=== PATIENT | male | born 1940 | race Caucasian/White ===

== ENCOUNTER 2018-12-10 19:25 | Inpatient (IN) | payer MEDICARE, OTHER ==
--- NOTE | 2018-12-10 20:14 | ED Physician Chart ---
ED Chief Complaint/HPI - Patient Information Date Seen:: 12/10/18 Time Seen:: 20:09 Chief Complaint:: agitation History of Present Illness:: 78 yr old male with hx of depression here from [facility] in [place] here for agitation ED Review of Systems - Review of Systems General/Constitutional: No fever Skin: No skin lesions Head: No headache ENT: No earache Neck: No neck pain Cardio Vascular: Palpitations Pulmonary: No SOB GI: No nausea G/U: No dysuria Musculoskeletal: No bone or joint pain Endocrine: No polyuria Psychiatric: Depression Hematopoietic: No bruising Allergic/Immuno: No urticaria Neurological: No syncope ED Past Medical History - Past Medical History Obtainable: No Past Medical History: Other (metabolic encephalopathy parkinsons aphasia generalized weakness) ED Physical Exam - Physical Examination General/Constitutional: Well-developed, well-nourished Head: Atraumatic Eyes: Lids, conjuctiva normal Skin: Nl inspection ENMT: External ears, nose nl Neck: Full ROM w/o pain Respiratory: Nl effort/Exclusion Cardio Vascular: RRR GI: No tenderness/rebounding/guarding Extremities: No tenderness or effusion ED Assessment - Assessment General Assessment: agitaion ED Septic Shock - . Is Septic Shock (SBP<90, OR Lactate>4 mmol\L) present?: No ED Reassessment (Disposition) - Reassessment Reassessment:: dementia parkinsons aphasia depression - Diagnosis Diagnosis:: agitation depression - Patient Disposition Discharge/Transfer:: Acute Care w/in this hosp Admitted to:: Med/Surg Condition at Disposition:: Stable
[2018-12-10 20:28] LABS: % BASOPHILS 0.2 % (0.0-2.0); % EOSINOPHILS 5.4 % (0.0-5.0); % LYMPHOCYTES 23.2 % (20.0-50.0); % MONOCYTES 6.3 % (2.0-10.0); % NEUTROPHILS 64.9 % (40.0-80.0); EOSINOPHILE ABSOLUTE 0.3 Th/cmm (0.1-0.4); HEMATOCRIT 44.4 % (41.0-60); HEMOGLOBIN 14.5 gm/dL (12-16); LYMPHOCYTE ABSOLUTE 1.2 Th/cmm (1.5-3.0); MEAN CELL VOLUME 91.6 fl (80-99); MEAN CORPUSCULAR HEMOGLOBIN 29.9 pg (27.0-31.0); MEAN CORPUSCULAR HGB CONC 32.7 pg (28.0-36.0); MEAN PLATELET VOLUME 7.2 fl; MONOCYTE ABSOLUTE 0.3 Th/cmm (0.3-1.0); NEUTROPHILE ABSOLUTE 3.5 Th/cmm (1.8-8.0); PLATELET COUNT 233 Th/cmm (150-400); RED BLOOD COUNT 4.84 Mil/cmm (3.80-5.80); RED CELL DISTRIBUTION WIDTH 13.8 % (11.5-20.0); WHITE BLOOD COUNT 5.3 Th/cmm (4.8-10.8)
[2018-12-10 20:43] LABS: ALB/GLOB RATIO 1.2 (1.0-1.8); ALBUMIN 3.8 gm/dL (4.2-5.5); ALKALINE PHOSPHATASE 45 U/L (34-104); ANION GAP 12.1 (7.0-16.0); BILIRUBIN,TOTAL 0.5 mg/dL (0.3-1.0); BUN - UREA NITROGEN 20 mg/dL (7-25); CALCIUM SERUM 9.2 mg/dL (8.6-10.3); CARBON DIOXIDE 25.3 mEq/L (21.0-31.0); CHLORIDE 104 mEq/L (98-107); GLUCOSE 117 mg/dL (70-105); POTASSIUM SERUM 3.4 mEq/L (3.5-5.1); SGOT 15 U/L (13-39); SGPT/ALT 13 U/L (7-52); SODIUM SERUM 138 mEq/L (136-145)
[2018-12-10] MEDS ORDERED: Potassium Chloride 20 mEq ER Tab PO ONE ×2 (21:58→22:03)
[2018-12-10 23:12] VITALS: BP 132/56
[2018-12-10] MEDS ORDERED: Magnesium Hydroxide (MOM) 30 mL UDC PO PRN (23:18)
[2018-12-10] MEDS ORDERED: Hydrocodone/APAP 5mg/325mg Tab PO PRN (23:18)
[2018-12-11 08:10] LABS: CHOLESTEROL 165 mg/dL (<200); HDL -HIGH DENSITY LIPOPROTEIN 30 mg/dL (23-92); TRIGLYCERIDES 90 mg/dL (<150)
[2018-12-11] MEDS: Multivitamin Tab PO SCH (08:54)
--- NOTE | 2018-12-12 00:02 | History & Physical ---
ADMIT DATE: 12/11/2018 REASON FOR ADMISSION: Psychiatric disorder. HISTORY OF PRESENT ILLNESS: This is a 78-year-old male, who was admitted to [facility] for underlying psychiatric illness by Dr. Fabian. Dr. Fabian requested medical H and P on this patient. The patient denies current medical complaints or concerns. PAST MEDICAL HISTORY: Chronic low back pain, Parkinson's disease. PAST SURGICAL HISTORY: No significant past surgical history. FAMILY HISTORY: Unknown. SOCIAL HISTORY: Lives at nursing facility. No report of alcohol, tobacco, or street drug use. MEDICATIONS: Per medication reconciliation reviewed. ALLERGIES: No known drug allergies. REVIEW OF SYSTEMS: As per HPI, 12-point system is negative. PHYSICAL EXAMINATION: VITAL SIGNS: Temperature 98.0, pulse 68, respirations 20, blood pressure 102/53, and 94% on room air. Pain 0/10. HEENT: Unremarkable. HEART: S1, S2 normal. LUNGS: Clear to auscultation. ABDOMEN: Soft, nontender NEUROLOGIC: Grossly nonfocal. AVAILABLE LABORATORY DATA: Reviewed. ASSESSMENT: 1. Hyperlipidemia. 2. Hypokalemia. 3. Insomnia. 4. Psych disorder. 5. Chronic low back pain. PLAN: The patient will be continued on [place] as needed. Continue psychotropic medications. Fall precaution will be given. Home medications reviewed. Psych management per psychiatrist. Low fat diet. The patient medically stable to participate activity in [facility]. Thank you, Dr. Fabian, for allowing me to participate in the care of this patient. [facility]# [id number]
--- NOTE | 2018-12-12 00:50 | Psychiatric Evaluation ---
DATE OF SERVICE: 12/10/2018 IDENTIFYING DATA: The patient is a 78-year-old male, resident of [facility]. Information obtained directly interviewing the patient as well as reviewing the admission papers. JUSTIFICATION FOR HOSPITALIZATION: The patient is admitted for depression. CHIEF COMPLAINT: "I am not feeling well." HISTORY OF PRESENT ILLNESS: This is the first psychiatric hospitalization to [facility] for this patient who is reported to have been feeling depressed and getting easily isolated and withdrawn and has been having crying spells. Chart is reviewed. The patient is interviewed. During the interview, the patient has been very isolative and has not been verbalizing much. The patient's sleep is noted to be poor. Appetite is also noted to be poor. PAST PSYCHIATRIC HISTORY: Details are not known. MEDICAL AND PHYSICAL EXAMINATION: Requested to be done by Dr. Nash. SUBSTANCE ABUSE HISTORY: None. PHYSICAL OR SEXUAL ABUSE HISTORY: None. LEGAL PROBLEMS: None at this time. INVENTORY OF ASSETS: The patient is motivated. MENTAL STATUS EXAMINATION: The patient is a 78-year-old, looking his stated age, superficially cooperative. Eye contact is poor. Mood is noted to be depressed. Affect is constricted. The patient is isolative and withdrawn. Insight and judgment at this time are noted to be still impaired. Impulse control seems to be limited. The patient is not presenting with any threats to harm self or others at this time. The patient has short-term memory deficits, but long-term memory seems to be fair at this time. The patient is alert and aware that he is in the hospital. DIAGNOSTIC IMPRESSION: AXIS I: Major depressive disorder, recurrent and moderate. IB. Dementia and behavioral change, secondary trait. AXIS II: None. IMMEDIATE TREATMENT PLAN: The patient is going to be observed on inpatient unit, provided with supportive psychotherapy. The patient is going to be closely monitored. Encouraged to verbalize the concerns. Once stabilized, the patient is going to be discharged to [facility] to be followed up on an outpatient basis. JOB# [id number]
[2018-12-12] MEDS: Escitalopram Oxalate 5 mg Tab PO SCH (08:50)
[2018-12-12] MEDS: Multivitamin Tab PO SCH (08:50)
--- NOTE | 2018-12-13 03:06 | Progress Notes ---
DATE: 12/12/2018 SUBJECTIVE: Staff was spoken to. The patient is interviewed. Mood is noted to be depressed. Affect is constricted. The patient is isolative and withdrawn. Insight and judgment are noted to be still impaired. Impulse control is noted to be limited. ASSESSMENT: The patient is still depressed. PLAN: To continue the patient with Lexapro and follow. The patient has both short-term as well as long-term memory deficits. [facility]# [id number]
[2018-12-13] MEDS: Escitalopram Oxalate 5 mg Tab PO SCH (08:33)
[2018-12-13] MEDS: Multivitamin Tab PO SCH (08:33)
--- NOTE | 2018-12-13 23:32 | Progress Notes ---
DATE: 12/13/2018 SUBJECTIVE: Staff was spoken to. The patient is interviewed. Mood is noted to be depressed. Affect is constricted. The patient is isolative and withdrawn. The patient has been not verbalizing much of anything and the patient tends to be confined to his bed most of the time. No side effects to the medications are noted. The patient is currently on 5 mg of the Lexapro and is able to tolerate the medication. ASSESSMENT: The patient is still depressed. PLAN: To continue the patient with the supportive therapy. I encouraged the patient to verbalize the concerns rather than to act out. JOB# [id number]
[2018-12-14] MEDS: Multivitamin Tab PO SCH (08:49)
[2018-12-14] MEDS: Escitalopram Oxalate 5 mg Tab PO SCH (09:00)
--- NOTE | 2018-12-14 09:02 | Consultation ---
DATE OF CONSULTATION: 12/12/2018 REFERRING PHYSICIAN: Edilma Lara MD TYPE OF CONSULTATION: Psychology. HISTORY OF PRESENT ILLNESS: The patient is a 78-year-old male. The patient is a resident of [facility]. The following is by record review and by the patient's self-report. The patient is being admitted for depression. Upon interview, the patient states that he is not feeling well and that he is very depressed. The staff at the patient's facility states that the patient had become isolated and very withdrawn with intermittent crying spells. The patient was not specific as to the reasons for his depression. The patient seems somewhat selectively mute when answering the clinical interview questions. The patient denied any suicidal ideation, plan, or intention at the time of this clinical interview. PAST MEDICAL HISTORY: Please see history and physical by Dr. Nash. PAST PSYCHIATRIC HISTORY: Records are unavailable. Details are unknown. SUBSTANCE ABUSE HISTORY: The patient denied any history of alcohol, tobacco, or illicit drug use. PSYCHOSOCIAL HISTORY: The patient did not answer questions about occupational or educational history. The patient states that he is [employer] and that he was , but is legally . The patient states that his daughter, Priscilla is involved in his care. The patient denied any history of physical or sexual abuse or any current legal problems. The patient does wish to return to his placement. MENTAL STATUS EXAMINATION: The patient appears to be his stated age. The patient's attitude is superficially cooperative. Eye contact is poor. Speech is soft and slow. Mood is depressed. Affect is mood congruent. Thought process shows to be depressogenic with some confusion. The patient denied any suicidal ideation, plan, or intention or any wish to . The patient denies any auditory or visual hallucinations or any delusions. The patient's behavior has been isolative and withdrawn. The patient's impulse control is adequate. Concentration is [id number]. The patient's memory seems to be moderately impaired for short-term dimension and long-term memory seems to be fair. Sensorium is alert and oriented to self and place only. The patient did not participate in the interpretation of proverbs. Insight is poor and judgment is compromised. DIAGNOSTIC IMPRESSION: AXIS I: 1. Major depressive disorder, recurrent, moderate. 2. Provisional diagnosis of dementia with behavioral disturbance. AXIS II: Deferred. AXIS III: Per Dr. Nash. TREATMENT PLAN: The patient has been seen by Dr. Lara for psychiatric evaluation and for the management of the patient's psychotropic medications. We will provide supportive psychotherapy to include cognitive behavioral therapy to reduce the patient's depression. We will provide coping strategies for phase of life issues as well as adjustment to the patient's placement in a long-term care environment. We will provide motivational enhancement for the patient to become compliant and stay compliant with all aspects of his care and treatment. We will encourage the patient to verbally contract for safety. We will continue the present treatment and follow up in 2 days. Thank you, Dr. Lara for this consult and the opportunity to participate in this patient's care. JOB# [id number] MTDD
--- NOTE | 2018-12-15 01:37 | Progress Notes ---
DATE: 12/14/2018 PSYCHIATRIC PROGRESS NOTE SUBJECTIVE: Staff was spoken to. The patient is interviewed. Mood is noted to be depressed. Affect is constricted. The patient is isolative and withdrawn. Insight and judgment are noted to be still impaired. Impulse control is noted to be limited. The patient is isolative and not able to participate in any of the groups. ASSESSMENT: The patient is still depressed. PLAN: To continue the patient on current medications. I encouraged the patient to verbalize the concerns rather than to act out. The patient is on 5 mg of escitalopram and has been able to tolerate. Plan to continue the medication and follow up. JOB# [id number]
[2018-12-15] MEDS: Multivitamin Tab PO SCH (08:45)
[2018-12-15] MEDS: Escitalopram Oxalate 5 mg Tab PO SCH (08:45)
--- NOTE | 2018-12-15 23:53 | Progress Notes ---
DATE: 12/15/2018 PSYCHOLOGY PROGRESS NOTE SUBJECTIVE: The patient is seen and is interviewed. Case is discussed with staff. The patient presents as depressed as well as withdrawn. The patient does not understand what is happening to him and why he is hospitalized. The patient admits that he is very depressed and lacks any motivation to participate in the milieu therapy. Staff reports that the patient is isolative and withdrawn. OBJECTIVE: Mood is depressed. Affect is constricted. Thought process shows to be depressogenic. The patient denies any hallucinations or delusions. The patient denies any suicidal ideation, plan, or intention or any wish to . The patient is withdrawn and isolating. ASSESSMENT: The patient remains depressed. We provided coping strategies for phase of life issues. We provided cognitive behavioral therapy to reduce the patient's depression. The patient is taking his p.o. medications. We will continue to monitor the patient on the unit and provide supportive psychotherapy. We will provide remotivation for the patient to become compliant and stay compliant with all aspects of his care and treatment and to participate in the therapies being offered. We will follow up in 2 days to continue the present treatment if the patient remains admitted on the unit. JOB# [id number] ZINA
--- NOTE | 2018-12-16 01:36 | Progress Notes ---
DATE: 12/15/2018 SUBJECTIVE: Staff was spoken to. The patient is interviewed. Mood is noted to be still depressed. Affect is constricted. The patient is isolative and withdrawn. Insight and judgment are noted to be still impaired. Impulse control is noted to be limited. The patient has been having difficult time to cope with the stress. The patient is currently on 5 mg of the Lexapro and has been able to tolerate the medication. In view of the depression, I have decided to increase the dose on the Lexapro to 10 mg and followup. JOB# [id number]
[2018-12-16] MEDS: Multivitamin Tab PO SCH (08:38)
[2018-12-16] MEDS: Escitalopram Oxalate 5 mg Tab PO SCH (08:38)
--- NOTE | 2018-12-17 03:19 | Progress Notes ---
DATE: 12/16/2018 SUBJECTIVE: Staff was spoken to. The patient is interviewed. Mood is noted to be depressed. Affect is constricted. The patient is isolated and withdrawn. The patient is not willing to participate in any of the groups. Coping skills are noted to be very poor. The patient has been able to tolerate the Lexapro that was increased to 10 mg and the patient is going to be followed up with the supportive therapy. No side effects to the medications are noted so far. ASSESSMENT: The patient is still depressed. PLAN: To continue the patient with the supportive therapy and followup. JOB# [id number]
[2018-12-17] MEDS: Escitalopram Oxalate 5 mg Tab PO SCH (08:54)
[2018-12-17] MEDS: Multivitamin Tab PO SCH (08:55)
--- NOTE | 2018-12-17 22:14 | General Progress Note ---
Objective - Results Result Diagrams: 12/10/18 20:25 12/10/18 20:25 Recent Labs: Laboratory Last Values WBC 5.3 Th/cmm (4.8-10.8) 12/10/18 20: RBC 4.84 Mil/cmm (3.80-5.80) 12/10/18 20:25 Hgb 14.5 gm/dL (12-16) 12/10/18 20:25 Hct 44.4 % (41.0-60) 12/10/18 20:25 MCV 91.6 fl (80-99) 12/10/18 20:25 MCH 29.9 pg (27.0-31.0) 12/10/18 20: MCHC Differential 32.7 pg (28.0-36.0) 12/10/18 20:25 RDW 13.8 % (11.5-20.0) 12/10/18 20:25 Plt Count 233 Th/cmm (150-400) 12/10/18 20:25 MPV 7.2 fl 12/10/18 20:25 Neutrophils % 64.9 % (40.0-80.0) 12/10/18 20:25 Lymphocytes % 23.2 % (20.0-50.0) 12/10/18 20:25 Monocytes % 6.3 % (2.0-10.0) 12/10/18 20:25 Eosinophils % 5.4 % (0.0-5.0) H 12/10/18 20:25 Basophils % 0.2 % (0.0-2.0) 12/10/18 20:25 Sodium 138 mEq/L (136-145) 12/10/18 20:25 Potassium 3.4 mEq/L (3.5-5.1) L 12/10/18 20:25 Chloride 104 mEq/L (98-107) 12/10/18 20:25 Carbon Dioxide 25.3 mEq/L (21.0-31.0) 12/10/18 20:25 Anion Gap 12.1 (7.0-16.0) 12/10/18 20:25 BUN 20 mg/dL (7-25) 12/10/18 20:25 Creatinine 1.0 mg/dL (0.7-1.3) 12/10/18 20:25 Est GFR ( Amer) TNP 12/10/18 20:25 Est GFR (Non-Af Amer) TNP 12/10/18 20:25 BUN/Creatinine Ratio 20.0 12/10/18 20:25 Glucose 117 mg/dL (70-105) H 12/10/18 20:25 POC Glucose 89 MG/DL (70 - 105) 12/11/18 00:12 Calcium 9.2 mg/dL (8.6-10.3) 12/10/18 20:25 Total Bilirubin 0.5 mg/dL (0.3-1.0) 12/10/18 20:25 AST 15 U/L (13-39) 12/10/18 20:25 ALT 13 U/L (7-52) 12/10/18 20:25 Alkaline Phosphatase 45 U/L (34-104) 12/10/18 20:25 Total Protein 7.0 gm/dL (6.0-8.3) 12/10/18 20:25 Albumin 3.8 gm/dL (4.2-5.5) L 12/10/18 20:25 Globulin 3.2 gm/dL 12/10/18 20:25 Albumin/Globulin Ratio 1.2 (1.0-1.8) 12/10/18 20:25 Triglycerides 90 mg/dL (<150) 12/10/18 20:56 Cholesterol 165 mg/dL (<200) 12/10/18 20:56 LDL Cholesterol Direct 131 mg/dL (75-193) 12/10/18 20:56 HDL Cholesterol 30 mg/dL (23-92) 12/10/18 20:56 TSH 1.60 uIU/ml (0.34-5.60) 12/10/18 20:56 RPR NONREACTIVE (NONREACTIVE) 12/10/18 20:56 - Physical Exam Vitals and I&O: Vital Signs Temp 98.2 F 12/17/18 20:00 Pulse 64 12/17/18 20:00 Resp 20 12/17/18 20:00 BP 148/76 12/17/18 20:00 Pulse Ox 96 12/17/18 20:00 Intake & Output 12/17/18 12/17/18 12/18/18 06:59 18:59 06:59 Intake Total 1330 1200 Balance 1330 1200 Intake: Oral 1330 1200 Other: # Voids 2 3 # Bowel Movements 0 0 Active Medications: Current Medications Acetaminophen (Tylenol) 650 mg PO Q4H PRN PRN Reason: Pain or Fever >101 Stop: 02/08/19 23:17 Acetaminophen/Hydrocodone Bitart (Sublette 5mg/325mg) 1 tab PO Q6H PRN PRN Reason: Pain (Severe) Stop: 02/08/19 23:17 Escitalopram Oxalate (Lexapro) 10 mg PO DAILY JABIER; Protocol Stop: 02/14/19 08:59 Last Admin: 12/17/18 08:54 Dose: 10 mg Lorazepam (Ativan) 0.5 mg PO Q4HR PRN; Protocol PRN Reason: Anxiety Stop: 01/09/19 23:12 Magnesium Hydroxide (Milk Of Magnesia) 30 ml PO DAILY PRN PRN Reason: Constipation Stop: 02/08/19 23:17 Multivitamins/Vitamin C (Theragran) 1 tab PO DAILY JABIER Stop: 02/09/19 08:59 Last Admin: 12/17/18 08:55 Dose: 1 tab Zolpidem Tartrate (Ambien) 5 mg PO HS PRN PRN Reason: Insomnia Stop: 02/08/19 23:12 Nutritional Asmnt/Malnutr-PDOC - Dietary Evaluation Malnutrition Findings (Please click <Entered> for more info): Nutritional Asmnt/Malnutrition Start: 12/11/18 13: 17 Text: Status: Complete Freq: Protocol: Document 12/11/18 13:17 TETE (Rec: 12/11/18 13:35 MBTING [id number]) Nutritional Asmnt/Malnutrition Patient General Information Nutritional Screening High Risk Diagnosis PSYCHOSIS Pertinent Medical Hx/Surgical Hx PARKINSON'S Subjective Information HIGH INITIAL NUTRITION RISK SCREENING FOR NELLA SCORE 12 CURRENT DIET ORDER PUREED, NTL , ENSURE ENLIVE TID NO NURSING NOTED INTAKE YET, WILL CONTINUE TO MONITOR Current Diet Order/ Nutrition Support PUREE, NTL, ENSURE ENLIVE TID Pertinent Medications MOM, MULTI VIT Pertinent Labs ALB 3.8, POTASS 3.4, GLUC 117 Nutritional Hx/Data Height 1.65 m Height (Calculated Centimeters) 165.1 Current Weight (lbs) 54.431 kg Weight (Calculated Kilograms) 54.4 Weight (Calculated Grams) 96367.1 [place] Body Weight 61.8 KG % [place] Body Weight 88 Body Mass Index (BMI) 20.0 Recent Weight Change No Weight Status Approriate GI Symptoms GI Symptoms None Difficult in: Chewing Swallowing Skin Integrity/Comment: NELLA SCORE 12 Estimated Nutritional Goals BEE in Kcals: Using Current wt Calories/Kcals/Kg 25-30 Kcals Calculated 4402-0373 Protein: Using Current wt Protein g/k.8-1 Protein Calculated 44-55 Fluid: ml 1.3-1.6 Nutritional Problem 1. Problem Problem CHEWING SWALLOWING DIFFICULTY Etiology R/T MEDICAL CONDITION Signs/Symptoms: AEB MD ORDERED PUREED, NECTAR THICKENED LIQUID DIET Intervention/Recommendation Comments DIETITIAN WILL MONITOR PO INTAKE, DIET TOLERANCE, NUTRITION RELATED LABS, & SKIN INTEGRITY DISCHARGE PLAN: CURRENT DIET REFLECTS PAST MEDICAL HISTORY AND IS APPROPRIATE FOR DISCHARGE Expected Outcomes/Goals Expected Outcomes/Goals PT TO CONSUME >75% ESTIMATED ENERGY AND PROTEIN NEEDS WITHIN 1-[address]
--- NOTE | 2018-12-18 00:36 | Progress Notes ---
DATE: 12/17/2018 PSYCHIATRIC PROGRESS NOTE SUBJECTIVE: Staff was spoken to. The patient is interviewed. Mood is noted to be anxious. The patient is isolative and withdrawn. Insight and judgment at this time are noted to be improving. Impulse control is noted to be fair. The patient is not presenting with any threats to harm self. The patient's sleep and appetite are noted to be fair. The patient has been able to tolerate the medication. ASSESSMENT: The patient is stabilizing. PLAN: To possibly discharge the patient tomorrow to the [facility] facility for further followup on an outpatient basis. JOB# [id number]
--- NOTE | 2018-12-18 05:31 | Progress Notes ---
DATE: 12/17/2018 PSYCHOLOGY PROGRESS NOTE SUBJECTIVE: The patient is seen and is interviewed. The case was discussed with staff. The patient presents as still depressed as well as amotivated, anergic, and anhedonic. Staff reports the patient is isolative and withdrawn and has not participated in the milieu therapy. The patient is not responding to the clinical questions most of the time. On occasion, the patient will answer yes or no, but is not offering much information and is not fully engaging in the therapeutic interventions being presented. OBJECTIVE: Mood is depressed. Affect is constricted. Thought process shows to be depressogenic. The patient did not answer questions about experiencing suicidal ideation, plan, or intention. He denied experiencing any hallucinations or delusions. The patient's behavior has been withdrawn and isolative and amotivated. The patient is taking his p.o. medications. ASSESSMENT AND PLAN: The patient's depression persists. We provided coping strategies for phase of life issues. We provided motivational enhancement for the patient to become compliant with his care and treatment and to participate in the therapies being offered. We will continue to attempt to approach the patient with reflective listening and insight-oriented therapy. The patient may respond to this more favorably. We provided positive reinforcement for the patient to stay compliant with his medication. We will follow up in 2 days to continue the present treatment if the patient remains admitted on the unit. JOB# [id number] ZINA
[2018-12-18] MEDS: Escitalopram Oxalate 5 mg Tab PO SCH (08:05)
[2018-12-18] MEDS: Multivitamin Tab PO SCH (08:05)
--- NOTE | 2018-12-18 19:39 | Discharge Summary ---
DATE OF DISCHARGE: 12/18/2018 IDENTIFYING DATA: Staff was spoken to, the patient is interviewed. The patient is a 78-year-old resident of [facility]. JUSTIFICATION OF HOSPITALIZATION: The patient is brought in for depression. CHIEF COMPLAINT: "I am not feeling well." DIAGNOSES AT THE TIME OF ADMISSION: AXIS IA: Major depressive disorder, recurrent and moderate. AXIS IB: Dementia and behavioral change, secondary trait. AXIS II: None. AXIS III: As per Dr. Nash. HISTORY OF PRESENT ILLNESS: Please refer the 12/11/2018 dictation done by me. Physical examination was done by Dr. Nash and is noted to be significant for hyperlipidemia, hypokalemia, insomnia, and chronic low back pain. Blood work done at the time of the hospitalization has been reviewed by Dr. Nash and no major intervention was needed. HOSPITAL COURSE AND RESPONSE TO TREATMENT: The patient has been observed on inpatient unit, provided with supportive psychotherapy. The patient has been placed on the citalopram that was increased to 10 mg. The patient started to do fairly well and was finally discharged with recommendation that he is going to be seeking treatment at the [facility]. MENTAL STATUS EXAMINATION AT THE TIME OF DISCHARGE: The patient's mood is noted to be less irritable. Affect is appropriate. Not suicidal or homicidal. Insight and judgment are noted to be improving. Impulse control seems to be fair. Coping skills are also noted to be fair. The patient is not presenting with any psychotic symptoms. DIAGNOSES AT THE TIME OF DISCHARGE: AXIS I: Major depressive disorder, recurrent and moderate. AXIS IB: Dementia and behavioral change, secondary trait. AXIS II: None. AXIS III: Hypertension, hyperlipidemia, low back pain, and arthritis. AFTERCARE PLAN: The patient is discharged to the [facility] for further care. JOB# [id number]
== END 2018-12-18 15:30 | DRG 885 ==
LOC: ER 19:25 → GERO 22:10
DX: F33.1 Major depressive disorder, recurrent, moderate (principal); R47.01 Aphasia; F02.81 Dementia in other diseases classified elsewhere, unspecified severity, with behavioral disturbance; E78.5 Hyperlipidemia, unspecified; E87.6 Hypokalemia; G47.00 Insomnia, unspecified; G20 Parkinson's disease; G89.29 Other chronic pain; F29 Unspecified psychosis not due to a substance or known physiological condition; M54.5 Low back pain; M19.90 Unspecified osteoarthritis, unspecified site
CPT/HCPCS: 36415-UA; 80053-TC; 80061-TC; 82948-90; 83036-90; 84443-TC; 85025-TC; 86592-TC; 93005